=== PATIENT | female | born 1965 | race Caucasian/White ===

== ENCOUNTER 2017-09-03 08:00 | Outpatient (CLI) | payer BC | END 2017-09-03 08:01 | disposition home or self-care (01) | LOC: BICMAMMO 08:00 | PROVIDERS: ATTEND Family Medicine | DX: Z12.31 Encounter for screening mammogram for malignant neoplasm of breast (principal) | CPT/HCPCS: 77063; 77067; G0202 ==

== ENCOUNTER 2020-08-31 14:43 | Outpatient (CLI) | payer BC ==
--- NOTE | 2020-08-31 15:37 | MMO ---
Bilateral MAMMO Bilat Screen [facility]. CLINICAL HISTORY: Patient is 55 years old and is seen for screening. The patient has no family history of breast cancer. The patient has no personal history of cancer. VIEWS: The views performed were: bilateral craniocaudal with tomosynthesis and bilateral mediolateral oblique with tomosynthesis. FILMS COMPARED: The present examination has been compared to prior imaging studies performed at [facility] on 11/17/2008, 08/30/2011 and 09/03/2017, and at [facility] on 06/08/2005. This study has been interpreted with the assistance of computer-aided detection. MAMMOGRAM FINDINGS: The breasts are heterogeneously dense, which could obscure a lesion on mammography. There is an oval mass measuring 7 millimeters with obscured margins seen in the lower-outer region of the right breast. In the left breast, there are no suspicious masses, calcifications or areas of architectural distortion. IMPRESSION: MASS IN THE RIGHT BREAST REQUIRES ADDITIONAL EVALUATION. RECOMMEND DIAGNOSTIC MAMMOGRAM. ULTRASOUND MAY ALSO PROVE USEFUL AT RECALL. THE RESULTS OF THIS EXAM WERE SENT TO THE PATIENT. ACR BI-RADS Category 0 - Incomplete: Need additional imaging evaluation. [facility] will notify the patient of the need for additional imaging services. MAMMOGRAPHY NOTE: 1. A negative mammogram report should not delay a biopsy if a dominant of clinically suspicious mass is present. 2. Approximately 10% to 15% of breast cancers are not detected by mammography. 3. Adenosis and dense breasts may obscure an underlying neoplasm. Reported by: RICHARD MEJIA MD Electonically Signed: [id number]
== END 2020-08-31 14:44 | disposition home or self-care (01) ==
LOC: BICMAMMO 14:43
PROVIDERS: ATTEND Family Medicine
DX: Z12.31 Encounter for screening mammogram for malignant neoplasm of breast (principal); N63.13 Unspecified lump in the right breast, lower outer quadrant
CPT/HCPCS: 77063; 77067

== ENCOUNTER 2020-09-02 10:04 | Outpatient (CLI) | payer BC ==
--- NOTE | 2020-09-02 10:46 | MMO ---
Right Breast MAMMO Unilat Diag [facility]+LORE. CLINICAL HISTORY: Patient is 55 years old and is seen for diagnostic exam. The patient has no family history of breast cancer. The patient has no personal history of cancer. VIEWS: The views performed were: right craniocaudal spot compression with tomosynthesis; right mediolateral oblique spot compression with tomosynthesis; and right mediolateral with tomosynthesis. FILMS COMPARED: The present examination has been compared to prior imaging studies performed at [facility] on 08/30/2011, 09/03/2017, 08/31/2020 and 09/02/2020. This study has been interpreted with the assistance of computer-aided detection. MAMMOGRAM FINDINGS: The breast is heterogeneously dense, which could obscure a lesion on mammography. There is a round mass measuring 7 millimeters with circumscribed margins seen in the middle region of the right breast at 8 o'clock. Cyst. There are no suspicious masses, suspicious calcifications, or new areas of architectural distortion. IMPRESSION: THERE IS NO MAMMOGRAPHIC EVIDENCE OF MALIGNANCY. A ROUTINE FOLLOW-UP MAMMOGRAM IN 1 YEAR IS RECOMMENDED. THE RESULTS OF THIS EXAM WERE SENT TO THE PATIENT. ACR BI-RADS Category 2 - Benign finding MAMMOGRAPHY NOTE: 1. A negative mammogram report should not delay a biopsy if a dominant of clinically suspicious mass is present. 2. Approximately 10% to 15% of breast cancers are not detected by mammography. 3. Adenosis and dense breasts may obscure an underlying neoplasm. Reported by: NORAH MITCHELL MD Electonically Signed: [id number]
--- NOTE | 2020-09-02 12:49 | ULT ---
RIGHT BREAST ULTRASOUND: Date: 09/02/2020 HISTORY: Follow-up abnormal finding on mammogram. FINDINGS: Region of concern is the 8 o'clock position of the right breast. In the 8 o'clock position of the right breast, 3.0 cm from the nipple, there is a circumscribed, slig htly lobular appearing benign cyst measuring 0.6 x 0.6 x 0.7 cm. IMPRESSION: Benign right breast cyst at 8 o'clock, 3.0 cm from the nipple, corresponding to the mammographic find ing. BI-RADS Category 2 - Benign findings. Continued annual follow-up screening mammograms. POS: OFF
== END 2020-09-02 10:05 | disposition home or self-care (01) ==
LOC: BICMAMMO 10:04
PROVIDERS: ATTEND Family Medicine
DX: N63.13 Unspecified lump in the right breast, lower outer quadrant (principal); N60.01 Solitary cyst of right breast
CPT/HCPCS: G0279

== ENCOUNTER 2022-05-24 09:33 | Outpatient (CLI) | payer BC, OTHER | END 2022-05-24 09:34 | disposition home or self-care (01) | LOC: BICMAMMO 09:33 | PROVIDERS: ATTEND Family Medicine | DX: Z12.31 Encounter for screening mammogram for malignant neoplasm of breast (principal) | CPT/HCPCS: 77063; 77067 ==